=== PATIENT | male | born 1995 | race Caucasian/White ===

== ENCOUNTER 2017-09-28 02:45 | Emergency (ER) | payer SELFPAY ==
[2017-09-28 02:46] VITALS: BP 183/118
--- NOTE | 2017-09-28 02:54 | ER Report ---
History and Physical Time Seen By MD: 02:51 Hx. of Stated Complaint: NURSING HOME CLEARANCE, PT INTOXICATED. HPI/ROS CHIEF COMPLAINT: Skilled Nursing clearance HISTORY OF PRESENT ILLNESS: 22-year-old male brought in by police, halfway clearance. Patient was walking home intoxicated and unsteady gait. Patient voices no complaints. Patient voices no significant past medical history. Patient voices no injuries. REVIEW OF SYSTEMS: Respiratory: No cough, no dyspnea. Cardiovascular: No chest pain, no palpitations. Gastrointestinal: No vomiting, no abdominal pain. Musculoskeletal: No back pain. Allergies: Coded Allergies: No Known Drug Allergies (Unverified , 09/28/17) Home Meds No Active Prescriptions or Reported Meds Hx Substance Use Disorder: No Hx Alcohol Use: Yes Constitutional Vital Sign - Last 24 Hours 09/28/17 02:46 Temp 97.7 Pulse 137 Resp 16 B/P (MAP) 183/118 Pulse Ox 95 O2 Delivery Room Air Physical Exam Blood pressures elevated, patient is tachycardic General Appearance: The patient is alert, has no immediate need for airway protection and no current signs of toxicity.. Palpation of the head and neck shows no tenderness or trauma HEENT:: Pupils equal and round no injection. TMs normal, oropharynx without dental trauma Respiratory: Chest is non tender, lungs are clear to auscultation. Cardiac: regular rate and rhythm Gastrointestinal: Abdomen is soft and non tender, no masses, bowel sounds normal. Musculoskeletal: Neck: Neck is supple and non tender. Extremities have full range of motion and are non tender. Skin: No rashes or lesions. DIFFERENTIAL DIAGNOSIS: After history and physical exam differential diagnosis was considered for alcohol intoxication, polysubstance abuse, halfway clearance Medical Decision Making ED Course/Re-evaluation ED Course Patient was admitted to an examination room. H&P was done. The differential diagnoses was considered. On clinical examination. Patient has stable vital signs. Clinical examination shows no evidence of injuries. Patient voices no complaints. He is medically cleared for halfway admission. Decision to Disposition Date: September 28, 2017 Decision to Disposition Time: 02:56 Depart Departure Latest Vital Signs Vital Signs Date Time Temp Pulse Resp B/P (MAP) Pulse Ox O2 Delivery O2 Flow Rate FiO2 09/28/17 02:46 97.7 137 16 183/118 95 Room Air Impression: Primary Impression: Medical clearance for incarceration Additional Impression: Alcohol intoxication Condition: Improved Disposition: [facility] TO NURSING HOME/CORRECTIONAL F New Scripts No Active Prescriptions or Reported Meds Patient Instructions: Alcohol Intoxication (ED) Additional Instructions: Medically cleared for halfway admission Problem Qualifiers Additional Impression: Alcohol intoxication Complication of substance-induced condition: uncomplicated Qualified Codes: F10.920 - Alcohol use, unspecified with intoxication, uncomplicated JJ GREEN DO September 28, 2017 02:54
== END 2017-09-28 03:00 ==
LOC: ER 02:51
DX: F10.920 Alcohol use, unspecified with intoxication, uncomplicated (principal)
CPT/HCPCS: 99282